=== PATIENT | male | born 1970 | race Caucasian/White ===

== ENCOUNTER → 2016-12-26 | Outpatient (CLI) | payer BC ==
[~2016-12-26] MED LIST: FLEXERIL PO; HYDROCODON-ACE1 EAC5 PO; LORTAB 7.5-5001 TAB PO; NAPROSYN-EC500 MG PO; NORCO 10-325 TA1 TAB PO
--- NOTE | ~2016-12-26 | CR7 ---
[facility] A Service of [facility] & [facility] RADIOLOGY TEXT RESULTS PATIENT: CELSO BRANTLEY JR LOCATION: [facility] : 70 UNIT #: [id number] AGE: [address]: Stiven De Luna MD SEX: M ORDER DR: [id number] [facility] [address] [place], [place] [address] [id number] O MR#: [id number] Acc #: [id number] NAME: CELSO BRANTLEY : 1970 SEX: M STUDY DATE/TIME: 12/26/2016 10:17 UNIT: [facility] ROOM: STUDY DESCRIPTION: CR Abdomen Single AP View Attending Physician: Stiven De Luna M.D. Referring Physician: Stiven De Luna M.D. Ordering Physician: Stiven De Luna M.D. Primary Care Physician: Lazara Adrian M.D. MEDICAL IMAGING REPORT This report is preliminary unless electronic signature is present EXAM AP of the abdomen INDICATION 46-year-old male with left flank pain for 1 week and history of kidney stones. COMPARISON 07/03/2015 FINDINGS There are no radiopaque kidney stones. There are multiple phleboliths in the pelvis. Visualized osseous structures are unremarkable. IMPRESSION No radiopaque kidney stones. Dictated by... Omar Wallace M.D. THIS IS AN ELECTRONICALLY VERIFIED REPORT Omar Wallace M.D. at 12/26/2016 4:56 PM MISHA/judah TD: 12/26/2016 12:09 JOB #: [id number] MEDICAL IMAGING REPORT COPY
== END | disposition home or self-care (01) ==
LOC: CRAD 10:02
DX: N20.0 Calculus of kidney (principal)
CPT/HCPCS: 74000